=== PATIENT | male | born 1955 | race Caucasian/White ===

== ENCOUNTER 2024-08-06 16:22 | Inpatient (IN) | payer MEDICARE, SELFPAY ==
--- NOTE | ~2024-08-06 | CT_ITS ---
CLINICAL HISTORY: cp CT ANGIOGRAPHY CHEST WITH CONTRAST. 3D POSTPROCESSING. Comparison: None provided Findings: The heart is normal size. RV/LV ratio is normal. Prominent coronary artery calcifications. Atherosclerotic changes throughout the thoracic aorta with no aneurysm or dissection. No pulmonary artery filling defects. The visualized thyroid and mediastinum are unremarkable. No consolidation, pleural effusion or pneumothorax. There is septal thickening in the bilateral lower lobes, right greater than left. Bilateral lower lobe atelectasis. Biapical scarring. Small calcified granuloma in the left upper lobe. Cholelithiasis. No acute fractures. IMPRESSION: 1. No pulmonary embolus. 2. Mild septal thickening in the bilateral lower lobes secondary to inflammation, infection or fluid overload. 3. Cholelithiasis. This document has been electronically signed by: Keri Cast DO on 08/06/2024 20:58:22
--- NOTE | ~2024-08-06 | XR_ITS ---
CLINICAL HISTORY: cp 1 view chest x-ray Comparison: None provided Findings: Two films were obtained. Bilateral reticulonodular densities. No superimposed consolidation. No pleural effusion or pneumothorax. Heart size is upper limits of normal. Several clips project over the lower left neck. No acute fracture. IMPRESSION: 1. Bilateral reticulonodular densities suggesting inflammatory or infectious process. 2. No segmental pneumonia or significant pleural effusion. This document has been electronically signed by: Keri Cast DO on 08/06/2024 17:47:17
--- NOTE | 2024-08-06 16:36 | ECG_ITS ---
Test Reason : CP Blood Pressure : */* mmHG Vent. Rate : 82 BPM Atrial Rate : 82 BPM P-R Int : 208 ms QRS Dur : 146 ms QT Int : 410 ms P-R-T Axes : 46 67 3 degrees QTcB Int : 479 ms Normal sinus rhythm Right bundle branch block Inferior infarct , age undetermined Anterior infarct , age undetermined Abnormal ECG No previous ECGs available Referred By: Generic ED Physician Electronically Signed By: Christopher Dickerson
[2024-08-06 16:39] VITALS: BP 108/66; PULSE 77; RESP 12; TEMP 36.4; O2SAT 93; BMI 28.8
[2024-08-06 16:58] LABS: MANUAL DIFF FLAG NO
[2024-08-06 16:59] LABS: Basophils Absolute Auto 0.1 X10*3/uL (0.0-0.2); Basophils Percent Auto 0.6 % (0-2); Eosinophils Absolute Auto 0.3 X10*3/uL (0.0-0.4); Eosinophils Percent Auto 3.7 % (0-4); Hemoglobin 13.1 g/dl (14.0-18.0); Imm Gran Abs Auto 0.02 X10*3/uL (0.00-0.03); Imm Gran Pct Auto 0.2 % (0.0-0.4); Lymphocytes Absolute Auto 1.9 X10*3/uL (1.2-4.9); Lymphocytes Percent Auto 23.3 % (20-40); Mean Corpuscular HGB Conc 34.5 g/dl (31.0-36.0); Mean Corpuscular Hemoglobin 31.4 pg (27.0-33.0); Mean Corpuscular Volume 91.1 fL (80.0-98.0); Mean Platelet Volume 9.5 fL (9.4-12.4); Monocytes Absolute Auto 0.8 X10*3/uL (0.1-1.2); Monocytes Percent Auto 9.4 % (2-11); Neutrophils Absolute Auto 5.1 x10*3/uL (2.0-8.3); Neutrophils Percent Auto 62.8 % (45-73); Platelet Count 270 X10*3/uL (160-400); Red Blood Count 4.17 X10*6/uL (4.60-5.80); Red Cell Distribution Width 13.4 % (11.0-16.0); White Blood Count 8.2 X10*3/uL (4.8-10.8)
--- NOTE | 2024-08-06 17:14 | ED.CHESTPAIN ---
HPI - Chest Pain General Chief Complaint: Chest Pain Stated Complaint: chest pain shoulder to shoulder hx of [place] Time Seen by Provider: 08/06/24 16:47 History of Present Illness HPI narrative: Patient is 68 years old with a history of coronary artery disease had a history of having a heart attack 25 years ago status post stent history of peripheral vascular disease status post stent history of carotid disease status post stent presented today with having chest pain he has a history of diabetes, hypertension, high cholesterol history of smoking no family history of coronary artery disease patient woke up at approximately 03:45 had chest pain shortness of breath and diaphoresis. Lasting about 15-20 minute without any specific trigger. On arrival the pain is gone. He stated that he had a similar episode this morning when he woke up. Patient is from home normally goes to [facility]. Related Data Allergies Allergy/AdvReac Type Severity Reaction Status Date / Time No Known Allergies Allergy Verified 08/06/24 16:41 Review of Systems Review of Systems: Positive chest pain Yes all other systems are reviewed and are negative [facility] Past Medical History Attestation statement: The following information was validated with the patient. Social History Social History Smoked in Last 30 Days: No Use of substances other than those prescribed or required for medical reasons: No Advance Directives: No Advance Directives Information Provided: No Physical Exam Vital Signs: Vital Signs: Last Vital Signs Temp 98.0 F 08/06/24 17:55 Pulse 79 08/06/24 17:55 Resp 15 08/06/24 17:55 BP 117/79 08/06/24 17:55 Pulse Ox 95 08/06/24 17:55 O2 Del Method Room Air 08/06/24 17:55 BMI result Body Mass Index 28.8 Appearance: Alert. Oriented X3. No acute distress. Eyes: Pupils equal, round and reactive to light. ENT: Pharynx normal. Neck: Normal inspection. Neck supple. No lymph nodes noted. No crepitus CVS: Normal heart rate and rhythm. Pulses normal. Normal S1 and S2 Respiratory: No respiratory distress. Breath sounds normal. No Wheezing. No rales Abdomen: Soft and nontender. No rigidity. No distention. good BS x4 Skin: Skin warm and dry. Normal skin color. Normal skin turgor. Extremities: No lower extremity edema. Neurovascular intact to all extremities. No Lacerations. No Rash Neuro: Oriented X 3. No motor deficit. No sensory deficit. Moving all extermities. No slurred speech Medications Administered Generic Name Dose Route Start Last Admin Trade Name Freq PRN Reason Stop Dose Admin Nicotine Polacrilex 2 mg 08/06/24 17:22 08/06/24 17:36 Nicotine Polacrilex 2 Mg Gum BUCCAL 2 mg Q1H PRN Administration Nicotine Cravings Medical Decision Making Medical Decision Making [facility] Narrative: No old records here at [facility]. My review patient's EKG showed a sinus rhythm heart rate is 80 there is a right bundle branch block. MT is normal QRS is prolonged secondary to a right bundle-branch block there is no acute ST segment elevation there is no old EKG to compare. Patient has multitude of risk factors with proven coronary artery disease. Positive chest tightness with diaphoresis. Will likely require admission for further evaluation cardiac enzymes pending currently chest pain-free. Case consulted with Cardiology will start patient on heparin hospitalist team was consulted will admit patient for further evaluation 1st troponin came back in the 40s. No distress. Currently pain free. 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 Lab Attestation statement: I reviewed the patient's lab results. 08/06/24 16:53 08/06/24 16:53 Labs: Lab Results 08/06/24 Range/Units 16:53 WBC 8.2 (4.8-10.8) X10*3/uL RBC 4.17 L (4.60-5.80) X10*6/uL Hgb 13.1 L (14.0-18.0) g/dl Hct 38.0 L (42.0-52.0) % MCV 91.1 (80.0-98.0) fL MCH 31.4 (27.0-33.0) pg MCHC 34.5 (31.0-36.0) g/dl RDW 13.4 (11.0-16.0) % Plt Count 270 (160-400) X10*3/uL MPV 9.5 (9.4-12.4) fL Immature Gran % (Auto) 0.2 (0.0-0.4) % Neut % (Auto) 62.8 (45-73) % Lymph % (Auto) 23.3 (20-40) % [place] % (Auto) 9.4 (2-11) % Eos % (Auto) 3.7 (0-4) % Baso % (Auto) 0.6 (0-2) % Lymph # (Auto) 1.9 (1.2-4.9) X10*3/uL [place] # (Auto) 0.8 (0.1-1.2) X10*3/uL Eos # (Auto) 0.3 (0.0-0.4) X10*3/uL Baso # (Auto) 0.1 (0.0-0.2) X10*3/uL Abs Immat Gran (auto) 0.02 (0.00-0.03) X10*3/uL Absolute Neuts (auto) 5.1 (2.0-8.3) x10*3/uL Absolute Nucleated RBC 0.000 (0.0-0.012) X10*3/uL Nucleated RBC % (auto) 0.0 (0.0-0.2) /100WBC Sodium 140 (135-145) mmol/L Potassium 4.6 (3.3-5.1) mmol/L Chloride 107 (96-108) mmol/L Carbon Dioxide 25 (22-29) mmol/L Anion Gap 13 (12-20) BUN 25 H (9-16) mg/dL Creatinine 1.24 (0.5-1.4) mg/dL Estim Creat Clear Calc 57.2 Estimated GFR 58 Random Glucose 128 H (60-115) mg/dL Calcium 9.2 (8.4-10.2) mg/dL Total Bilirubin 0.3 (0.0-1.0) mg/dL AST 22 (5-37) U/L ALT 25 (0-40) U/L Alkaline Phosphatase 61 (39-117) U/L Troponin I High Sens 57.0 H (<3.5-35.0) ng/L Total Protein 6.9 (6.5-8.0) g/dL Albumin 4.2 (3.5-5.0) g/dL Independent Interpretation I performed an independent interpretation of an: EKG (My interpretation patient's EKG showed a sinus rhythm heart rate is 80 there is a right bundle branch block there is no acute ST segment elevation) and Plain X-Ray (Chest x-ray negative for pneumonia pneumothorax) Radiology Impression Discussion of test interpretation with radiology: I have reviewed the radiologist's reading. External Record Review No significant old records here at [facility] Chronic Conditions Patient?s care impacted by: Diabetes and Hypertension History of smoking history of coronary artery disease history of peripheral vascular disease Discharge Plan Discharge Clinical Impression: Angina at rest Patient Disposition: Admitted As Inpatient Print Language: Haitian
[2024-08-06 17:25] LABS: Alanine Aminotransferase 25 U/L (0-40); Albumin Level 4.2 g/dL (3.5-5.0); Alkaline Phosphatase 61 U/L (39-117); Anion Gap 13 (12-20); Aspartate Amino Transferase 22 U/L (5-37); Bilirubin Total 0.3 mg/dL (0.0-1.0); Blood Urea Nitrogen 25 mg/dL (9-16); Calcium 9.2 mg/dL (8.4-10.2); Carbon Dioxide 25 mmol/L (22-29); Chloride 107 mmol/L (96-108); Creatinine Clr Calc Pharmacy 57.2; Estimated Glomerular Filt Rate 58; Glucose Random 128 mg/dL (60-115); Potassium 4.6 mmol/L (3.3-5.1); Sodium 140 mmol/L (135-145); Total Protein 6.9 g/dL (6.5-8.0)
[2024-08-06] MEDS: Nicotine Polacrilex 2 MG GUM BUCCAL ×2 (17:36→19:01)
[2024-08-06 17:55] VITALS: BP 117/79; PULSE 79; RESP 15; TEMP 36.7; O2SAT 95
[2024-08-06 18:09] LABS: Hematocrit 37.6 % (42.0-52.0); Mean Corpuscular HGB Conc 34.6 g/dl (31.0-36.0); Mean Corpuscular Hemoglobin 31.5 pg (27.0-33.0); Mean Platelet Volume 9.6 fL (9.4-12.4); Platelet Count 271 X10*3/uL (160-400); Red Blood Count 4.13 X10*6/uL (4.60-5.80); Red Cell Distribution Width 13.5 % (11.0-16.0); White Blood Count 8.8 X10*3/uL (4.8-10.8)
[2024-08-06 18:16] LABS: Prothrombin Time 10.9 SEC (10.9-12.4)
[2024-08-06] MEDS: Heparin Sodium,Porcine/1/2NS 25,000 UNIT/250 ML IV.SOLN 10 UNIT IVCONT (18:35)
[2024-08-06] MEDS: Heparin Sodium,Porcine 5,000 UNIT/ML VIAL 4000 UNIT IVPUSH (18:38)
--- OUTSIDE RECORDS SUMMARY | 2024-08-06 18:44 | XMS_ITS | Encounter Summary ---
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 This section includes the names of all active insurance providers for the patient. Insurance Provider Type of Coverage Plan Name Start of Policy Coverage End of Policy Coverage Group Number Member ID Insurance Provider's Telephone Number Policy Rai's Name Patient's Relationship to Policy Rai MEDICARE (R) MEDICARE (M) PART B Jul 21, 2018 PART B [id number] KUNAL KUMARI PATIENT MEDICARE (WNR) MEDICARE (M) PART A Jul 21, 2018 PART A [id number] KUNAL KUMARI PATIENT [facility] 2017 DIREC T CARE RETIR E Jul 21, 2018 (R) DIRECT CARE [id number] KUNAL KUMARI PATIENT [facility] 2018 SELEC T Feb 20, 2017 (R) SELECT [id number] KUNAL KUMARI PATIENT FOR LIFE TFL* Jul 21, 2018 [id number] KUNAL KUMARI PATIENT [facility] TRICVanna RE STAND HALINA Apr 23, 2009 [id number] KUNAL KUMARI PATIENT Selected Encounter This section includes the information on record at [place] for the Encounter. Date/Time Encounter Type Encounter Description Reason Provider Source Sep 13, 2023 11:00 AM OFFICE O/P EST MOD 30 MIN PODIATRY ICD-10-CM L60.0 Ingrowing nail ALEJANDRA RYDER Inocencio Encounter Template Text not used by [place] Assessments - Encounter Diagnoses This section includes the primary and secondary diagnoses documented for the Encounter. Date/Time Primary/Secondary Diagnosis Diagnosis Name Provider Source Sep 13, 2023 11:32 AM PRIMARY Ingrowing nail ALEJANDRA RYDER Sep 13, 2023 11:32 AM SECONDARY Pain in left toe(s) ALEJANDRA RYDER Sep 13, 2023 11:32 AM SECONDARY Pain in right toe(s) ALEJANDRA RYDER Sep 13, 2023 11:32 AM SECONDARY Type 2 diabetes w diabetic peripheral angiopath w/o gangrene ALEJANDRA RYDER Plan of Treatment: Future Appointments (+ 6 months) and Future Tests (+/- 45 days) The Plan of Treatment section includes future care activities for the patient from all [place] treatmentfacilities. This section includes future appointments and future orders which are active, pending or scheduled. Future Appointments This section includes appointments that were scheduled to occur 6 months from the date of the Encounter, up to a maximum of 20 appointments. The data comes from all [place] treatment facilities. Appointment Date/Time Appointment Type Appointme nt Facility Name Jan 24, 2024 11:00 AM AMBULATORY - MEDICINE [facility] Feb 05, 2024 09:00 AM AMBULATORY - MEDICINE [facility] [place] [facility] Mar 12, 2024 09:00 AM AMBULATORY - MEDICINE [facility] [place] [facility] Social History: Smoking Status (Most current) and Tobacco Use (All prior to encounter date) This section includes the most current, and the historical, smoking and tobacco- related health factors from the [facility] facility where the Encounter took place. Current Smoking Status This section includes the most current smoking, or tobacco-related health factor, from the [facility] facility where the Encounter took place. Date/Time Current Smoking Status Comment Facil ity May 16, 2022 09:00 AM VA-TOBACCO FORMER USER [facility] Tobacco Use History This section includes a history of the smoking, or tobacco-related health factors, that were collected on or before the date of the Encounter. The data comes from the [place] facility where the Encounter took place. Date/Time Smoking Status/Tobacco Use Comment F lizy May 16, 2022 09:00 AM VA-TOBACCO QUIT 1 TO < 5 YRS [facility] May 31, 2021 09:30 AM VA-TOBACCO FORMER USER [facility] May 31, 2021 09:30 AM VA-TOBACCO QUIT 1 TO < 5 YRS [facility] June 23, 2020 09:00 AM VA-TOBACCO FORMER USER [facility] June 23, 2020 09:00 AM VA-TOBACCO QUIT 1 TO < 5 YRS [facility] Feb 04, 2019 08:55 AM VA-TOBACCO USE 30 YEARS OR MORE [facility] Feb 04, 2019 08:55 AM VA-TOBACCO USE ADVICE [facility] Feb 04, 2019 08:55 AM VA-TOBACCO USE ERP TECHNICAL LEAD YES Provider made aware and date set [facility] Feb 04, 2019 08:55 AM VA-TOBACCO USE MED NOTIFY PROVIDER provider made aware of 's plan [facility] Feb 04, 2019 08:55 AM VA-TOBACCO USE WI 30 MIN OF WAKEUP [facility] Feb 04, 2019 08:55 AM VA-TOBACCO USER EVERY DAY [facility] Encounter Notes: All associated encounter notes This section contains the clinical notes associated to the Encounter. Date/Time Encounter Note(s) Provider Source Sep 13, 2023 11:33 AM PODIATRY NOTE: LOCAL TITLE: PODIATRY PAVE FOOT EXAM STANDARD TITLE: PODIATRY NOTE DATE OF NOTE: SEP 13, 2023@11:33 ENTRY DATE: SEP 13, 2023@11:33:27 AUTHOR: ALEJANDRA RYDER EXP COSIGNER: URGENCY: STATUS: COMPLETED PAVE FOOT EXAM A foot risk level was completed. The following risk level was identified for this patient: +POD RISK SCORE+ *--LEVEL 3 - (HIGH RISK)* ANY of the following: Severe obstructive peripheral arterial disease Ulceration; OR history of ulceration, osteomyelitis, or amputation Charcot joint w/foot deformity Chronic kidney disease, stage 4 or higher (Decreased sensation, foot deformity, and minor foot infection may be present or absent) LEVEL 3 FOOT EDUCATION: 1. Advised patient that extra depth footwear with soft molded inserts and braces may be required. 2. Advised patient not to walk barefoot. Instructed the patient to pay close attention to the style and fit of shoes. 3. Explained the importance of daily foot checks. Explained that loss of sensation leads to callouses. Callouses break down, which result in ulcers that may lead to gangrene and amputation. 4. Stressed the importance of daily foot hygiene. Warm (not hot) bathing of the feet, complete drying and thorough inspection for changes in the condition of the skin constitute daily foot care. Demonstrated how to do a thorough foot check. 5. Emphasized the use of clean, non-restrictive socks/stockings and well fitting shoes. 6. Stressed the importance of immediate follow-up of any foot injuries or ulcers. Explained that he/she should be non-weight bearing whenever there are lesions on the foot, to prevent cellular damage. Level of Understanding: Good Patient/Family Response to Foot Care Teaching Patient walks barefoot: A few times per month Patient/caregiver able to clean feet at least once daily: Yes Patient/caregiver has difficulty examining feet: No /es/ ALEJANDRA RYDER DPM TOP KNITTER Signed: 09/13/2023 11:34 ALEJANDRA RYDER Sep 13, 2023 07:46 AM PODIATRY NOTE: LOCAL TITLE: PODIATRY NOTE STANDARD TITLE: PODIATRY NOTE DATE OF NOTE: SEP 13, 2023@07:46 ENTRY DATE: SEP 13, 2023@07:46:13 AUTHOR: ALEJANDRA RYDER EXP COSIGNER: URGENCY: STATUS: COMPLETED PODIATRY NOTE Has ADDENDA NOTE: HAS RECEIVED BOTH COVID VACCINE DOSES + 2 BOOSTERS AT [facility] LAST SEEN FOR TREATMENT: 03/29/2023 S: Pt. is a 68 yo alert WDWN CAUC MALE who is seen for continued podiatric care of painful, thickened, severely incurvated, yellow-brown discolored nails and having SOME PRURITIS AND PEELING OF SKIN ON THE RT FOOT ONLY. There has been no pain as he is seen for timely podiatric care in an attempt to avoid pain or infection. There is no history of trauma. There have been no recent changes in the patient's medical condition or medications UPON QUESTIONING TODAY. Pt. is at risk of injury with self-care due to the presence of TYPE II DM. *DENIES ANY RECENT CHANGES IN MEDS-SEE RECONCILIATION PERFORMED THIS DATE BELOW *TOBACCO USE = in process of quitting :smoking 15 per day O: Exam reveals skin color, termp & text to be WNL. There is absence of hair noted. Nails are thickened, yellow-brown discolored and display crumbling, flakiness and sub-ungual debris with rubor in the medial & lateral nail grooves and pain on palpation. Affected nails are as follows: HALLUX RT. There are no hyperkeratosis noted at this time. There are no other gross LE changes in status noted this date. PMH: Active problems - Computerized Problem List is the source for the following: *NOTE: REVIEWED ABOVE NOTING RECENT CHANGES OF CONCERN other than PVD & TYPE II DM *NOTE: PLEASE SEE PROBLEM LIST TEMPLATE FOR COMPLETE LIST NEEDED. *NOTE: A1c= 7.2 (LAST TAKEN: 10/2021) AIF=816NB - RISK=2 HEIGHT: 67 in [170.2 cm] (02/06/2018 09:13) WEIGHT: 170 lb [77.3 kg] (02/06/2018 09:13) VASCULAR: DP & PT pulses to be absent non-palpable bilateral. CFT < 3 sec x 10. There is no edema and there are no varices-superficial noted. MUSCULOSKELETAL: Exam reveals muscle strength and tone to be equal & symmetrical bilaterally & WNL for an individual of this age and present physical-medical condition. There is pain free ROM at all joints distal to and including the ankle. NEUROLOGICAL: Exam reveals S/D, vibratory, light touch & proprioception sensations to be equal & symmetrical bilaterally & diminished for an individual of this age and present physical-medical status. Protective sensation utilizing a Vanduser-David lOg monofilament is 10/10 bilateral. Exams are reviewed and noted to be unchanged since previous visit. *NOTE: *YEARLY COMPLETE PAVE EXAM PERFORMED TODAY - SEE BELOW. A: Clinical Impression: Painful onychocryptic NAILS 1-2-3-4-5 BILATERAL as noted above in the presence of PVD-DM. Class findings have been met in a high risk individual and the systemic condition has resulted in circulatory impairment & areas of desensitization. P: Treatment consists of trimming-reduction of all nails via manual and electric means with excision of offending nail borders and thinning of nail plates to the point of immanent bleeding. All care rendered without complications & pt. progressing well after podiatric care this date & will be scheduled for periodic care in an attempt to prevent future complications due to the underlying medical conditions. Tx. By a non-professional could be extremely hazardous to the patient's well-being due to the underlying medical condition. RTC 4 months per patient's request. NOTE: DO NOT CUT RT HALLUX NAIL -USE JOANNE ONLY ASK PATIENT PRIOR TO TREATING IF OK TO DEBRIDE *REVIEWED HOME FOOT CARE FEET ARE IN EXCELLENT CONDITION AND I PROVIDED HIM WITH WRITTEN RECOMMENDATIONS FOR FOOT CARE TO BE REVIEWED AT HOME (FOOT CARE TIPS). DUE TO PAIN RT HALLUX PATIENT ALLOWED ME TO DEBRIDE THE NAIL PLATE AND UTILIZE THE POWER JOANNE AND WAS GREATLY RELIVED UPON LEAVING THE FACILITY WELL LACK OF PAIN DURING TREATMENT *DISCUSSED NEW PROTOCOLS AND CALLED SHAKIRA FOR RESCHEDULING TODAY I DISCUSSED THE FINDINGS & PLAN WITH PATIENT (UNCHANGED SINCE PREVIOUS VISIT) & PATIENT AGREES AND UNDERSTANDS PLAN & NOT IN NEED OF MIRROR AT THIS TIME Medication Reconciliation: PERFORMED TODAY - SEE BELOW. Outpatient: Has the patient been taking medications as documented in the EMLR? YES: The patient has been taking medications as documented in the EMLR. Essential Medication List for Review used to complete this medication reconciliation. INCLUDED IN THIS LIST: Alphabetical list of active outpatient prescriptions dispensed from this [facility] (local) and dispensed from another [place] or [facility]D facility (remote) as well as inpatient orders (local, pending and active), local clinic medications, locally documented non-VA medications, and local prescriptions that have or been discontinued in the past 90 days. - All changes in medications, including all non-VA/Herbal/OTC medications were entered into CPRS. - If there were any medications the patient should no longer take, they were discontinued. - The patient/caregiver was instructed to update this list, discard old lists, and take this list to the next appointment, whether with a VA or non-VA provider. JLV Link Data on this list may not be complete. Please check JLV. Allergies/ADRs (Tool #5) FACILITY ALLERGY/ADR -------- [facility] NO KNOWN ALLERGIES [facility] NO KNOWN ALLERGIES [facility] No Known Allergies [facility] (Tool #1) INCLUDED IN THIS LIST: Alphabetical list of active outpatient prescriptions dispensed from this PA (local) and dispensed from another [place] or [facility] facility (remote) as well as inpatient orders (local pending and active), local clinic medications, locally documented non-VA medications, and local prescriptions that have or been discontinued in the past 90 days. Non-VA Meds Last Documented On: Nov 08, 2022 NOTE The display of VA prescriptions dispensed from another PA or [facility]D facility (remote) is limited to active outpatient prescription entries matched to National Drug File at the originating site and may not include some items such as investigational drugs, compounds, etc. NOT INCLUDED IN THIS LIST: Medications self-entered by the patient into personal health records (i.e. Pusher) are NOT included in this list. Non-VA medications documented outside this PA, remote inpatient orders (regardless of status) and remote clinic medications are NOT included in this list. The patient and provider must always discuss medications the patient is taking, regardless of where the medication was dispensed or obtained. OUTPT AMMONIUM LACTATE 12% LOTION (Status = Active) APPLY MODERATE AMOUNT TOPICALLY TWICE DAILY NEEDED FOR DRY IRRITATED SKIN Rx# [id number] Last Released: 11/11/22 Qty/Days Supply: 480/90 Rx Expiration Date: 11/09/23 Refills Remainin Indication: FOR DRY SKIN Non-VA ASPIRIN 81MG EC TAB TAKE ONE TABLET BY MOUTH EVERY DAY Patient wants to buy from Non-VA pharmacy. OUTPT ATORVASTATIN CALCIUM 80MG TAB (Status = Active) TAKE ONE TABLET BY MOUTH ONCE DAILY FOR CHOLESTEROL REPLACES SIMVASTATIN. Rx# [id number] Last Released: 03/04/23 Qty/Days Supply: 90 Rx Expiration Date: 11/09/23 Refills Remainin Non-VA CILOSTAZOL PA-F TAB TAKE BY MOUTH TWICE DAILY Non-VA medication not recommended by PA provider. Indication: FOR INTERMITTENT CLAUDICATION OUTPT CLOPIDOGREL BISULFATE 75MG TAB (Status = Active) TAKE ONE TABLET BY MOUTH ONCE DAILY Rx# [id number] Last Released: 01/24/23 Qty/Days Supply: 90/90 Rx Expiration Date: 11/17/23 Refills Remainin OUTPT FISH OIL 1000MG (500MG DHA/EPA) CAP (Status = ) TAKE ONE CAPSULE BY MOUTH TWICE DAILY Rx# [id number] Last Released: 01/07/23 Qty/Days Supply: 200/90 Rx Expiration Date: 06/16/23 Refills Remainin OUTPT LISINOPRIL 40MG TAB (Status = Active) TAKE ONE TABLET BY MOUTH ONCE DAILY TO CONTROL BLOOD PRESSURE Rx# [id number] Last Released: 01/24/23 Qty/Days Supply: 90/90 Rx Expiration Date: 11/17/23 Refills Remainin OUTPT METOPROLOL TARTRATE 25MG TAB (Status = Active) TAKE ONE TABLET BY MOUTH TWICE DAILY FOR BLOOD PRESSURE/HEART Rx# [id number] Last Released: 11/24/22 Qty/Days Supply: 180/90 Rx Expiration Date: 11/09/23 Refills Remainin Non-VA SERTRALINE HCL 100MG TAB TAKE ONE-HALF TABLET BY MOUTH ONCE DAILY Indication: FOR MAJOR DEPRESSIVE DISORDER OUTPT TRIAMCINOLONE ACETONIDE 0.1% CREAM (Status = Active) APPLY A THIN LAYER TOPICALLY TWICE DAILY NEEDED Rx# [id number] Last Released: 11/12/22 Qty/Days Supply: 80/30 Rx Expiration Date: 11/09/23 Refills Remainin SUPPLIES OUTPT ACCU-CHEK GUIDE (GLUCOSE) TEST STRIP (Status = Active) USE 1 STRIP TO TEST BLOOD SUGARS TWICE A WEEK NEEDED Rx# [id number] Last Released: 03/04/23 Qty/Days Supply: 50/180 Rx Expiration Date: 09/20/23 Refills Remainin PAVE Foot Check: A complete foot check was completed at this encounter. VISUAL INSPECTION: Includes inspection for skin breaks, deformity, erythema, trauma, pallor on elevation, dependent rubor, nail deformities, extensive callus and pitting edema. Visual exam results: Abnormal Observations: Thickened toenails PEDAL PULSES: Includes palpation of dorsalis and posterior tibial pulses and signs/symptoms of vascular compromise like pain, pallor, parasthesia or paralysis. Absent: Comment: DP & PT PULSES ARE ABSENT NON-PALPABLE BILAT SENSORY CHECK: Includes 10 gram Monofilament (Vanduser-David) test of sensation. Intact (Greater than or equal to 80% of sites checked) Abnormal (Less than 80% of sites checked): Intact Comment: VIBRATORY & MONOFILAMENT ARE WNL HIGH-RISK: HIGH RISK INFORMATION PROVIDED: 1. Advised patient that extra depth footwear with soft molded inserts and braces may be required. 2. Advised patient not to walk barefoot. 3. Explained the importance of daily foot checks. 4. Stressed the importance of daily foot hygiene, including bathing, complete drying and thorough inspection for changes. The patient verbalized understanding and was offered a detailed handout on diabetic foot care. Patient is established patient of Podiatry and/or Vascular: Last scheduled appointment: MAR 29, 2023@11:30 CWM/IDANIA/PODIATRY/ALEKSEY Comment: 03/29/2023 Suicide Screen: C-SSRS Screening [place]-Suicide Severity Rating Scale (C-SSRS Screener) 1. Over the past month, have you wished you were or wished you could go to sleep and not wake up? No 2. Over the past month, have you had any actual thoughts of killing yourself? No 3. Over the past month, have you been thinking about how you might do this? Response not required due to responses to other questions. 4. Over the past month, have you had these thoughts and had some intention of acting on them? Response not required due to responses to other questions. 5. Over the past month, have you started to work out or worked out the details of how to kill yourself? Response not required due to responses to other questions. 6. If yes, at any time in the past month did you intend to carry out this plan? Response not required due to responses to other questions. 7. In your lifetime, have you ever done anything, started to do anything, or prepared to do anything to end your life (for example, collected pills, obtained a gun, gave away valuables, went to the roof but didn't jump)? No 8. If YES, was this within the past 3 months? Response not required due to responses to other questions. /priyanka/ ALEJANDRA RYDER DPM TOP KNITTER Signed: 09/13/2023 11:33 09/13/2023 ADDENDUM STATUS: COMPLETED NEXT VISIT IS 01/24/2024 @ 11AM /priyanka/ ALEJANDRA RYDER DPM TOP KNITTER Signed: 09/13/2023 11:35 ALEJANDRA RYDER
--- NOTE | 2024-08-06 19:22 | PC.NURSE ---
this rn assumed care of pt, pt resting in stretcher, no acute distress noted. prn nicotine gum given per apr. heparin drip running at this time
--- NOTE | 2024-08-06 19:28 | ED_ITS ---
HPI - Chest Pain General Chief Complaint: Chest Pain Stated Complaint: chest pain shoulder to shoulder hx of CT Time Seen by Provider: 08/06/24 16:47 Related Data Home Medications ?Medication ?Instructions ?Recorded ?Confirmed atorvastatin 80 mg tablet 80 mg PO DAILY 08/06/24 clopidogrel 75 mg tablet 75 mg PO DAILY 08/06/24 dulaglutide 1.5 mg/0.5 mL mg subcut 08/06/24 subcutaneous pen injector (Trulicity) metformin 500 mg tablet,extended 1,000 mg PO BID 08/06/24 release 24 hr metoprolol succinate 50 mg 50 mg PO DAILY 08/06/24 tablet,extended release 24 hr sacubitril 24 mg-valsartan 26 mg 1 tab PO BID 08/06/24 tablet (Entresto) sertraline 50 mg tablet 50 mg PO DAILY 08/06/24 spironolactone 25 mg tablet 25 mg PO DAILY 08/06/24 Allergies Allergy/AdvReac Type Severity Reaction Status Date / Time No Known Allergies Allergy Verified 08/06/24 16:41 [facility] Social History Social History Smoked in Last 30 Days: No Use of substances other than those prescribed or required for medical reasons: No Advance Directives: No Advance Directives Information Provided: No Physical Exam 2 Vital Signs: Vital Signs: Last Vital Signs Temp 98.0 F 08/06/24 17:55 Pulse 79 08/06/24 17:55 Resp 15 08/06/24 17:55 BP 117/79 08/06/24 17:55 Pulse Ox 95 08/06/24 17:55 O2 Del Method Room Air 08/06/24 17:55 BMI result Body Mass Index 28.8 Medications Administered Generic Name Dose Route Start Last Admin Trade Name Freq PRN Reason Stop Dose Admin Heparin Sodium/Sodium Chloride 25,000 unit in 250 mls @ 0 mls/hr 08/06/24 18:15 08/06/24 18:35 Heparin Sodium,Porcine/1/2ns IVCONT 12 units/kg/hr .Q0M TYRELL 10 mls/hr Administration Protocol Per Protocol Nicotine Polacrilex 2 mg 08/06/24 17:22 08/06/24 19:01 Nicotine Polacrilex 2 Mg Gum BUCCAL 2 mg Q1H PRN Administration Nicotine Cravings Discontinued Medications Generic Name Dose Route Start Last Admin Trade Name Billie PRN Reason Stop Dose Admin Heparin Sodium (Porcine) 4,000 unit 08/06/24 17:56 08/06/24 18:38 Heparin Sodium,Porcine 5,000 Unit/Ml Vial IVPUSH 08/06/24 17:57 4,000 unit ONCE ONE Administration Medical Decision Making Lab Data 08/06/24 18:05 08/06/24 16:53 Labs: Lab Results 08/06/24 Range/Units 16:53 WBC 8.2 (4.8-10.8) X10*3/uL RBC 4.17 L (4.60-5.80) X10*6/uL Hgb 13.1 L (14.0-18.0) g/dl Hct 38.0 L (42.0-52.0) % MCV 91.1 (80.0-98.0) fL MCH 31.4 (27.0-33.0) pg MCHC 34.5 (31.0-36.0) g/dl RDW 13.4 (11.0-16.0) % Plt Count 270 (160-400) X10*3/uL MPV 9.5 (9.4-12.4) fL Immature Gran % (Auto) 0.2 (0.0-0.4) % Neut % (Auto) 62.8 (45-73) % Lymph % (Auto) 23.3 (20-40) % [place] % (Auto) 9.4 (2-11) % Eos % (Auto) 3.7 (0-4) % Baso % (Auto) 0.6 (0-2) % Lymph # (Auto) 1.9 (1.2-4.9) X10*3/uL [place] # (Auto) 0.8 (0.1-1.2) X10*3/uL Eos # (Auto) 0.3 (0.0-0.4) X10*3/uL Baso # (Auto) 0.1 (0.0-0.2) X10*3/uL Abs Immat Gran (auto) 0.02 (0.00-0.03) X10*3/uL Absolute Neuts (auto) 5.1 (2.0-8.3) x10*3/uL Absolute Nucleated RBC 0.000 (0.0-0.012) X10*3/uL Nucleated RBC % (auto) 0.0 (0.0-0.2) /100WBC Sodium 140 (135-145) mmol/L Potassium 4.6 (3.3-5.1) mmol/L Chloride 107 (96-108) mmol/L Carbon Dioxide 25 (22-29) mmol/L Anion Gap 13 (12-20) BUN 25 H (9-16) mg/dL Creatinine 1.24 (0.5-1.4) mg/dL Estim Creat Clear Calc 57.2 Estimated GFR 58 Random Glucose 128 H (60-115) mg/dL Calcium 9.2 (8.4-10.2) mg/dL Total Bilirubin 0.3 (0.0-1.0) mg/dL AST 22 (5-37) U/L ALT 25 (0-40) U/L Alkaline Phosphatase 61 (39-117) U/L Troponin I High Sens 57.0 H (<3.5-35.0) ng/L Total Protein 6.9 (6.5-8.0) g/dL Albumin 4.2 (3.5-5.0) g/dL Discharge Plan Discharge Clinical Impression: Angina at rest Patient Disposition: Admitted As Inpatient Interventions: Admission Worksheet (ED) Last Done: 08/06/24 19:26
--- NOTE | 2024-08-06 19:31 | PHA.MEDREC ---
Addendum entered by Sunday Vicente [facility] 08/06/24 19:37: med rec reviewed Original Note: Pharmacy Consult ? Medication Reconciliation Pharmacy has completed the medication reconciliation. Spoke to patient to confirm med list, Patient had a list of his medications with him. Patient state he takes Metoropolol 25 mg BID, however last claims has Metoprolol 50 mg daily. left on what claims has. Patient states he think he is no longer on Entresto and was changed to Spironolactone 25 mg , claims has them filled on the same date 07/10 for 90 days. left both on med list. Patient states he takes all his medications at bedtime.
[2024-08-06] MEDS: iohexoL 350 MG/ML 100 ML INFUS..BTL 65 ML IV (20:12)
[2024-08-06 20:42] VITALS: BMI 28.3
--- NOTE | 2024-08-06 20:42 | P.HPHOSP_ITS ---
History of Present Illness Date of Service: 08/06/24 Chief Complaint: chest pain 68-year-old male with a past medical history of HTN, HLD, dm, CAD, PVD, dependence, presented to the hospital with a chief complaint of chest pain. Patient reports that around 345 BMP chest pain located center of the chest, nonradiating associated nausea vomiting. Reports having diaphoresis. Called ambulance and ambulance team came and gave him aspirin and sublingual nitroglycerin followed with chest pain resolved. Did not recur. Denies any chest pain at the time of my interview. Denies any GI symptoms. Review of all other systems is negative except mentioned above ER course: Per ER team, patient was chest pain-free; EKG nonischemic; troponin 57-repeat pending; CTA chest was ordered; discussed with cardiology who suggested start the patient on heparin drip. [facility] Social History Smoked in Last 30 Days: No Use of substances other than those prescribed or required for medical reasons: No Advance Directives: No Advance Directives Information Provided: No Meds Allergies Allergy/AdvReac Type Severity Reaction Status Date / Time No Known Allergies Allergy Verified 08/06/24 16:41 Active Medications: Current Medications Acetaminophen (Acetaminophen 325 Mg Tablet) 650 mg PO Q6H PRN PRN Reason: Pain, Mild 1-3,fever,headache Calcium Carbonate (Calcium Carbonate 750 Mg Tab.Chew) 750 mg PO Q4H PRN PRN Reason: Heartburn Heparin Sodium (Porcine) (Heparin Sodium,Porcine 5,000 Unit/Ml Vial) 3,300 unit 40 unit/kg (3300 unit) IVPUSH PROTOCOL BOLUS PRN; Protocol PRN Reason: 40 unit/kg - Heparin Protocol Heparin Sodium (Porcine) (Heparin Sodium,Porcine 5,000 Unit/Ml Vial) 6,700 unit 80 unit/kg (6700 unit) IVPUSH PROTOCOL BOLUS PRN; Protocol PRN Reason: 80 unit/kg - Heparin Protocol Heparin Sodium/Sodium Chloride (Heparin Sodium,Porcine/1/2ns) 25,000 unit in 250 mls @ 0 mls/hr IVCONT .Q0M TYRELL; Protocol Last Admin: 08/06/24 18:35 Dose: 12 units/kg/hr, 10 mls/hr Magnesium Hydroxide (Milk Of Magnesia 30 Ml Oral.Susp) 30 ml PO DAILY PRN PRN Reason: Constipation Melatonin (Melatonin 3 Mg Tablet) 6 mg PO BEDTIME PRN PRN Reason: Insomnia Nicotine Polacrilex (Nicotine Polacrilex 2 Mg Gum) 2 mg BUCCAL Q1H PRN PRN Reason: Nicotine Cravings Last Admin: 08/06/24 19:01 Dose: 2 mg Nitroglycerin (Nitroglycerin 0.4 Mg Tab.Subl) 0.4 mg SUBLINGUAL Q5MX3 PRN PRN Reason: Chest Pain Sodium Chloride (0.9 % Sodium Chloride Flush 3 Ml Syringe) 3 ml IVFLUSH QSHIFT [facility] Medications ?Medication ?Instructions ?Recorded ?Confirmed ?Last Taken ?Type atorvastatin 80 mg tablet 80 mg PO BEDTIME 08/06/24 08/06/24 08/05/24 History clopidogrel 75 mg tablet 75 mg PO BEDTIME 08/06/24 08/06/24 08/05/24 History dulaglutide 1.5 mg/0.5 mL 1.5 mg subcut TH 08/06/24 08/06/24 08/01/24 History subcutaneous pen injector (Trulicity) metformin 500 mg tablet,extended 1,000 mg PO BID 08/06/24 08/06/24 08/05/24 History release 24 hr metoprolol succinate 50 mg 50 mg PO BEDTIME 08/06/24 08/06/24 08/05/24 History tablet,extended release 24 hr sacubitril 24 mg-valsartan 26 mg 1 tab PO BID 08/06/24 08/06/24 08/05/24 History tablet (Entresto) sertraline 50 mg tablet 50 mg PO BEDTIME 08/06/24 08/06/24 08/05/24 History spironolactone 25 mg tablet 25 mg PO DAILY 08/06/24 08/06/24 08/05/24 History Physical Exam 2 Vital Signs and Narrative: Vital Signs: Last Vital Signs Temp 98.0 F 08/06/24 17:55 Pulse 79 08/06/24 17:55 Resp 15 08/06/24 17:55 BP 117/79 08/06/24 17:55 Pulse Ox 95 08/06/24 17:55 O2 Del Method Room Air 08/06/24 17:55 BMI result Body Mass Index 28.8 Gen: Appears be in no acute distress HEENT: NCAT, Moist mucosa. Pulmonary: Vesicular breath sounds, fair air entry CVS: Normal S1-S2 Abdomen: BS+, Soft, Nontender Extremities: Warm well perfused Neuro: Alert and awake. Results Labs 08/06/24 18:05 08/06/24 16:53 Labs: Laboratory Results - last 24 hr 08/06/24 08/06/24 16:53 18:05 MCV 91.1 91.0 MCH 31.4 31.5 MCHC 34.5 34.6 RDW 13.4 13.5 Plt Count 270 271 MPV 9.5 9.6 Immature Gran % (Auto) 0.2 Neut % (Auto) 62.8 Lymph % (Auto) 23.3 [place] % (Auto) 9.4 Eos % (Auto) 3.7 Baso % (Auto) 0.6 Lymph # (Auto) 1.9 [place] # (Auto) 0.8 Eos # (Auto) 0.3 Baso # (Auto) 0.1 Abs Immat Gran (auto) 0.02 Absolute Neuts (auto) 5.1 Absolute Nucleated RBC 0.000 0.000 Nucleated RBC % (auto) 0.0 0.0 PT 10.9 INR 1.0 aPTT Heparin Protocol 29.0 L Anion Gap 13 Estim Creat Clear Calc 57.2 Estimated GFR 58 Random Glucose 128 H Calcium 9.2 Total Bilirubin 0.3 AST 22 ALT 25 Alkaline Phosphatase 61 Troponin I High Sens 57.0 H Total Protein 6.9 Albumin 4.2 Assessment and Plan (1) Angina at rest: Status: Acute Plan 68-year-old male with a past medical history of HTN, HLD, dm, CAD, PVD, dependence, presented to the hospital with a chief complaint of chest pain. Chest pain: Typical in nature Currently chest pain free EKG nonischemic Troponin 57--repeat pending CT chest done-resident pending Cardiology was notified- starting heparin drip Continue home Plavix, statin Telemetry Sublingual nitroglycerin p.r.n. HTN/HLD/CAD/PVD: Continue home metoprolol, statin , Plavix Diabetes: Insulin sliding scale DVT prophylaxis: Patient on heparin drip Code status: Full code Quality Stroke Does the patient have a stroke diagnosis?: No VTE Prior VTE?: No VTE Risk Level:: Medical - moderate - high VTE Device Contraindication: Treatment Not Indicated VTE Drug Contraindication: N/A - Med Ordered
[2024-08-06 20:50] VITALS: BP 136/80; PULSE 70; RESP 16; TEMP 36.7; O2SAT 97
[2024-08-06 21:28] LABS: Glucose, Whole Blood 106 mg/dL (60-115)
[2024-08-06 22:39] VITALS: BP 113/75; PULSE 68
[2024-08-06] MEDS: Metoprolol Succinate ER 50 MG TAB.ER.24H PO (22:39)
[2024-08-06] MEDS: Clopidogrel Bisulfate 75 MG TABLET PO (22:39)
[2024-08-06] MEDS: Sertraline HCL 50 MG TABLET PO (22:39)
[2024-08-06] MEDS: Atorvastatin Calcium 80 MG TABLET PO (22:40)
[2024-08-06] MEDS: 0.9 % Sodium Chloride Flush 3 ML SYRINGE IVFLUSH (22:41)
[2024-08-07] VITALS: BP 117/69; PULSE 71; RESP 18; TEMP 36.1; O2SAT 95
--- NOTE | 2024-08-07 | ECG_ITS ---
Test Reason : chest pain Blood Pressure : */* mmHG Vent. Rate : 65 BPM Atrial Rate : 65 BPM P-R Int : 192 ms QRS Dur : 142 ms QT Int : 442 ms P-R-T Axes : 70 53 241 degrees QTcB Int : 459 ms Normal sinus rhythm Right bundle branch block Inferior infarct (cited on or before 06-Aug-2024) Anterior infarct (cited on or before 06-Aug-2024) T wave abnormality, consider lateral ischemia Abnormal ECG When compared with ECG of 06-Aug-2024 16:36, Serial changes of Anterior infarct Present Referred By: Nicholas Stanley Electronically Signed By: Christopher Dickerson
[2024-08-07] MEDS: Heparin Sodium,Porcine 5,000 UNIT/ML VIAL 3300 UNIT IVPUSH (02:37)
[2024-08-07 04:00] VITALS: BP 107/69; PULSE 64; RESP 18; TEMP 36.3; O2SAT 95
[2024-08-07 07:10] LABS: MANUAL DIFF FLAG NO
[2024-08-07 07:14] LABS: Basophils Absolute Auto 0.1 X10*3/uL (0.0-0.2); Basophils Percent Auto 0.7 % (0-2); Eosinophils Absolute Auto 0.3 X10*3/uL (0.0-0.4); Eosinophils Percent Auto 3.7 % (0-4); Hematocrit 38.6 % (42.0-52.0); Hemoglobin 12.9 g/dl (14.0-18.0); Imm Gran Abs Auto 0.04 X10*3/uL (0.00-0.03); Imm Gran Pct Auto 0.5 % (0.0-0.4); Lymphocytes Absolute Auto 2.3 X10*3/uL (1.2-4.9); Lymphocytes Percent Auto 28.9 % (20-40); Mean Corpuscular HGB Conc 33.4 g/dl (31.0-36.0); Mean Corpuscular Hemoglobin 30.9 pg (27.0-33.0); Mean Corpuscular Volume 92.6 fL (80.0-98.0); Mean Platelet Volume 9.8 fL (9.4-12.4); Monocytes Absolute Auto 0.8 X10*3/uL (0.1-1.2); Monocytes Percent Auto 9.6 % (2-11); Neutrophils Absolute Auto 4.5 x10*3/uL (2.0-8.3); Neutrophils Percent Auto 56.6 % (45-73); Platelet Count 262 X10*3/uL (160-400); Red Blood Count 4.17 X10*6/uL (4.60-5.80); Red Cell Distribution Width 13.5 % (11.0-16.0)
[2024-08-07 07:16] LABS: Hematocrit 38.8 % (42.0-52.0); Mean Corpuscular HGB Conc 33.5 g/dl (31.0-36.0); Mean Corpuscular Volume 92.6 fL (80.0-98.0); Platelet Count 252 X10*3/uL (160-400); Red Blood Count 4.19 X10*6/uL (4.60-5.80); Red Cell Distribution Width 13.5 % (11.0-16.0); White Blood Count 7.8 X10*3/uL (4.8-10.8)
[2024-08-07 07:24] LABS: Prothrombin Time 11.8 SEC (10.9-12.4)
[2024-08-07 07:28] LABS: Alanine Aminotransferase 21 U/L (0-40); Alkaline Phosphatase 49 U/L (39-117); Anion Gap 12 (12-20); Aspartate Amino Transferase 21 U/L (5-37); Bilirubin Total 0.3 mg/dL (0.0-1.0); Blood Urea Nitrogen 22 mg/dL (9-16); Carbon Dioxide 23 mmol/L (22-29); Chloride 109 mmol/L (96-108); Creatinine Clr Calc Pharmacy 76.5; Estimated Glomerular Filt Rate > 60; Glucose Random 110 mg/dL (60-115); Potassium 4.3 mmol/L (3.3-5.1); Sodium 140 mmol/L (135-145); Total Protein 6.5 g/dL (6.5-8.0)
[2024-08-07 07:42] VITALS: BP 107/70; PULSE 68; RESP 18; TEMP 36.1; O2SAT 96
[2024-08-07 07:43] LABS: Glucose, Whole Blood 115 mg/dL (60-115)
[2024-08-07 07:49] LABS: Troponin-I High Sensitivity 106.9 ng/L (<3.5-35.0)
[2024-08-07 07:58] VITALS: BP 107/70; PULSE 68; RESP 18; TEMP 36.1; O2SAT 96
[2024-08-07] MEDS: 0.9 % Sodium Chloride Flush 3 ML SYRINGE IVFLUSH (08:13)
[2024-08-07 08:14] VITALS: BP 107/70
[2024-08-07] MEDS: Nicotine Polacrilex 2 MG GUM BUCCAL (08:14)
[2024-08-07] MEDS: Spironolactone 25 MG TABLET PO (08:14)
--- NOTE | 2024-08-07 08:50 | MHC.CM.PN ---
IMM 08/07. Pt self-care, lives alone at home. Pts brother to transport him home at discharge. New HCP completed with pt, now on file. PCP: Dr. Deric Weaver
[2024-08-07 09:52] LABS: PTT Heparin Drip 67.2 SEC (53-77.9)
--- NOTE | 2024-08-07 11:09 | CA_ITS ---
Transthoracic Echocardiogram Patient (Last, First, Middle): Abner Sousa, Gender: Male Date of : 1955 Age: 68 Procedure Date: 08/07/2024 Procedure Type: Transthoracic [place] [facility] [place]: 170.18 cm Weight: 81.65 kg BSA: 1.93 m2 Heart Rate: bpm BP: 109 / [address] Operations Clerk: RAMAN Referring MD: Nicholas Stanley DO Symptoms: NSTEMI Study Quality: Adequate with contrast Conclusions: - Normal left ventricular cavity size. There is mildly increased left ventricular wall thickness. The left ventricular systolic function is mild to moderately decreased. The visually estimated ejection fraction is between 35-40%. - The apical anterior and mid anterior segments are hypokinetic. - The apex, basal inferior, apical septum, and mid anteroseptal segments are akinetic. - Normal right ventricular cavity size and systolic function. Findings Procedure Information Contrast agent, definity, is being given per protocol without apparent complications. Left Ventricle Normal left ventricular cavity size. There is mildly increased left ventricular wall thickness. The left ventricular systolic function is mild to moderately decreased. The visually estimated ejection fraction is between 35-40%. There is evidence of regional wall motion abnormalities. Abnormal diastolic function is noted. Spectral Doppler is indicative of a pseudonormal filling pattern. E/E prime ratio is between 8 and 15 consistent with indeterminate filling pressures. There is severe septal asymmetric hypertrophy. Wall Motion Rest Echo Findings The apical anterior and mid anterior segments are hypokinetic. The apex, basal inferior, apical septum, and mid anteroseptal segments are akinetic. Right Ventricle Normal right ventricular cavity size and systolic function. Atria The left atrium is moderately dilated. The right atrium is likely dilated. Aortic Valve There is a normal trileaflet aortic valve. There is mild calcification of the aortic valve. Mitral Valve The mitral valve appears normal. There is mild to moderate mitral valve regurgitation. There is no mitral valve stenosis. Tricuspid Valve Normal tricuspid valve structure. There is no tricuspid valve regurgitation. Venous The inferior vena cava is normal in size and collapses greater than 50% with inspiration. Pericardium/Pleural There is no evidence of pericardial effusion. Prior Study Comparison No prior study available for comparison. Measurements 2D Linear Measurements IVSd: 1.79 0.6-0.9/0.6-1.0 cm LVIDd: 4.20 3.9-5.3/4.2-5.9 cm LVIDd Index: 2.18 2.4-3.2/2.2-3.1 cm/m2 LVIDs: 3.56 2.0-3.6 cm LVPWd: 1.16 0.7-1.1 cm LA Diam: 4.80 2.7-3.8/3.0-4.0 cm LAIDs Index: 2.49 1.5-2.3 cm/m2 LV Mass: 303.10 67-162/88-224 g LV Mass Index: 157.04 43-95/49-115 g/m2 LVOT Diam: 2.10 3.0+(-)1.3 cm 2D Systolic Function EF 4C: 39.30 >55% EF 2C: 37.20 >55% EF BiP: 38.50 >55% Mitral Valve MV Pk E: 0.81 MV PK A: 0.46 MV Decel Time: 176.00 E/A: 1.80 E'Lateral: 10.00 E'Medial: 4.79 E/E' Med: 17.00 E/E' Lat: 8.10 PHT: 52.00 MVA PHT: 4.23 Decel Lares: 4.62 Aortic Valve AoV Pk Vamsi: 1.17 AoV Mn Vamsi: 0.88 AoV VTI: 0.27 AoV Pk Grad: 5.00 Aov Mn Grad: 3.00 STEFAN Cont.VTI: 2.03 LVOT LVOT Pk Vamsi: 0.78 LVOT Mn Vamsi: 0.54 LVOT VTI: 0.16 LVOT Pk Grad: 2.00 LVOT Mn Grad: 1.00 LVOT Diam: 2.10 LVOT Area: 3.46 Diastolic Function MV Pk E: 0.81 MV Pk A: 0.46 E/A: 1.80 E'Medial: 4.79 E/E' Med: 17.00 E' Laterial: 10.00 E/E' Lat: 8.10 Right Ventricle TAPSE (mm): 20.90 TVS' Vamsi: 9.46 Tricuspid Valve RA Press: 8.00 Great Vessels Aorta Sinus of Valsalva: 3.54 2.0-3.[address] [place]: 2.72 1.7-3.4 cm Ao Asc: 3.50 2.1-3.4 cm Updated in Other Vendor System with Status of Final Christopher Dickerson MD electronically signed on 08/07/2024 5:15:06 PM with status of Final
[2024-08-07 11:35] VITALS: BP 100/58; PULSE 64; RESP 18; TEMP 36.2; O2SAT 96
[2024-08-07 11:41] LABS: Glucose, Whole Blood 103 mg/dL (60-115)
--- NOTE | 2024-08-07 11:48 | PM.DS ---
DS: Providers Provider Date of Service: 08/07/24 Date of admission: 08/06/24 17:51 Date of discharge: 08/07/24 Primary care physician: Nonstaff Physician Consults: 08/06/24 20:40 Consult to Cardiology Routine Consulting Provider: [facility] [place] [facility] Reason for consultation: angina DS: Diagnosis Discharge Diagnosis (1) Angina at rest: Status: Acute DS: Summary Hospital Course Hospital Course: [age] year old male with history of coronary artery disease status post multiple stenting, peripheral vascular disease status post left CEA (remote) presents with 2 episodes of chest pain. 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 Second episode accompanied by nausea and diaphoresis. Presents to the emergency room where EKG was without acute changes. Initial troponin 53; 2nd 106.9. No further chest pain since arrival. Patient has been heparinized since emergency room. Monitor has been sinus rhythm without acute dysrhythmias. Seen by Cardiology who recommends transfer to [facility] for cardiac catheterization. He has a diagnosis of diabetes type 2 however has not required any coverage since admission. At this point in time he is medically acceptable for transfer to [facility] via [facility] Time Attestation Discharge Coordination Time (in mins): 35 Quality: Safe Use of Opioids Does Pt have an Active Cancer Diagnosis on the Problem List?: No Quality: Stroke Does the patient have a stroke diagnosis?: No Physical Exam Vital Signs: Vital Signs: Last Vital Signs Temp 97.1 F 08/07/24 11:35 Pulse 64 08/07/24 11:35 Resp 18 08/07/24 11:35 BP 100/58 L 08/07/24 11:35 Pulse Ox 96 08/07/24 11:35 O2 Del Method Room Air 08/07/24 11:35 BMI result Body Mass Index 28.3 Const: Other: Awake alert oriented x3 in no acute distress Resp: Other: Clear to auscultation bilaterally no rales rhonchi or wheezes Cardio: Other: No S4; positive S1-S2; no S3 murmurs rubs or gallops GI: Other: Soft nontender nondistended normoactive bowel sounds Extrem: Other: No edema bilaterally DS: Data Data Completed and Pending Labs on day of discharge: Laboratory Results - last 24 hr 08/06/24 08/06/24 08/06/24 16:53 18:05 20:40 WBC 8.2 8.8 RBC 4.17 L 4.13 L Hgb 13.1 L 13.0 L Hct 38.0 L 37.6 L MCV 91.1 91.0 MCH 31.4 31.5 MCHC 34.5 34.6 RDW 13.4 13.5 Plt Count 270 271 MPV 9.5 9.6 Immature Gran % (Auto) 0.2 Neut % (Auto) 62.8 Lymph % (Auto) 23.3 [place] % (Auto) 9.4 Eos % (Auto) 3.7 Baso % (Auto) 0.6 Lymph # (Auto) 1.9 [place] # (Auto) 0.8 Eos # (Auto) 0.3 Baso # (Auto) 0.1 Abs Immat Gran (auto) 0.02 Absolute Neuts (auto) 5.1 Absolute Nucleated RBC 0.000 0.000 Nucleated RBC % (auto) 0.0 0.0 PT 10.9 INR 1.0 aPTT Heparin Protocol 29.0 L Sodium 140 Potassium 4.6 Chloride 107 Carbon Dioxide 25 Anion Gap 13 BUN 25 H Creatinine 1.24 Estim Creat Clear Calc 57.2 Estimated GFR 58 POC Glucose Random Glucose 128 H Calcium 9.2 Total Bilirubin 0.3 AST 22 ALT 25 Alkaline Phosphatase 61 Troponin I High Sens 57.0 H 121.0 H* D Total Protein 6.9 Albumin 4.2 08/06/24 08/07/24 08/07/24 21:22 00:27 06:54 WBC 7.8 RBC Hgb Hct MCV MCH MCHC RDW Plt Count MPV Immature Gran % (Auto) Neut % (Auto) Lymph % (Auto) [place] % (Auto) Eos % (Auto) Baso % (Auto) Lymph # (Auto) [place] # (Auto) Eos # (Auto) Baso # (Auto) Abs Immat Gran (auto) Absolute Neuts (auto) Absolute Nucleated RBC Nucleated RBC % (auto) PT INR aPTT Heparin Protocol 51.0 L D Sodium Potassium Chloride Carbon Dioxide Anion Gap BUN Creatinine Estim Creat Clear Calc Estimated GFR POC Glucose 106 Random Glucose Calcium Total Bilirubin AST ALT Alkaline Phosphatase Troponin I High Sens Total Protein Albumin 08/07/24 08/07/24 08/07/24 06:54 06:54 06:54 WBC 8.0 RBC 4.19 L 4.17 L Hgb 13.0 L 12.9 L Hct 38.8 L MCV MCH MCHC RDW Plt Count MPV Immature Gran % (Auto) Neut % (Auto) Lymph % (Auto) [place] % (Auto) Eos % (Auto) Baso % (Auto) Lymph # (Auto) [place] # (Auto) Eos # (Auto) Baso # (Auto) Abs Immat Gran (auto) Absolute Neuts (auto) Absolute Nucleated RBC Nucleated RBC % (auto) PT INR aPTT Heparin Protocol Sodium Potassium Chloride Carbon Dioxide Anion Gap BUN Creatinine Estim Creat Clear Calc Estimated GFR POC Glucose Random Glucose Calcium Total Bilirubin AST ALT Alkaline Phosphatase Troponin I High Sens Total Protein Albumin 08/07/24 08/07/24 08/07/24 06:54 06:54 06:54 WBC RBC Hgb Hct 38.6 L MCV 92.6 92.6 MCH 31.0 30.9 MCHC 33.5 RDW Plt Count MPV Immature Gran % (Auto) Neut % (Auto) Lymph % (Auto) [place] % (Auto) Eos % (Auto) Baso % (Auto) Lymph # (Auto) [place] # (Auto) Eos # (Auto) Baso # (Auto) Abs Immat Gran (auto) Absolute Neuts (auto) Absolute Nucleated RBC Nucleated RBC % (auto) PT INR aPTT Heparin Protocol Sodium Potassium Chloride Carbon Dioxide Anion Gap BUN Creatinine Estim Creat Clear Calc Estimated GFR POC Glucose Random Glucose Calcium Total Bilirubin AST ALT Alkaline Phosphatase Troponin I High Sens Total Protein Albumin 08/07/24 08/07/24 08/07/24 06:54 06:54 06:54 WBC RBC Hgb Hct MCV MCH MCHC 33.4 RDW 13.5 13.5 Plt Count 252 262 MPV 10.0 Immature Gran % (Auto) Neut % (Auto) Lymph % (Auto) [place] % (Auto) Eos % (Auto) Baso % (Auto) Lymph # (Auto) [place] # (Auto) Eos # (Auto) Baso # (Auto) Abs Immat Gran (auto) Absolute Neuts (auto) Absolute Nucleated RBC Nucleated RBC % (auto) PT INR aPTT Heparin Protocol Sodium Potassium Chloride Carbon Dioxide Anion Gap BUN Creatinine Estim Creat Clear Calc Estimated GFR POC Glucose Random Glucose Calcium Total Bilirubin AST ALT Alkaline Phosphatase Troponin I High Sens Total Protein Albumin 08/07/24 08/07/24 08/07/24 06:54 06:54 06:54 WBC RBC Hgb Hct MCV MCH MCHC RDW Plt Count MPV 9.8 Immature Gran % (Auto) 0.5 H Neut % (Auto) 56.6 Lymph % (Auto) 28.9 [place] % (Auto) 9.6 Eos % (Auto) 3.7 Baso % (Auto) 0.7 Lymph # (Auto) 2.3 [place] # (Auto) 0.8 Eos # (Auto) 0.3 Baso # (Auto) 0.1 Abs Immat Gran (auto) 0.04 H Absolute Neuts (auto) 4.5 Absolute Nucleated RBC 0.000 0.000 Nucleated RBC % (auto) 0.0 0.0 PT 11.8 INR 1.0 aPTT Heparin Protocol Sodium 140 Potassium 4.3 Chloride 109 H Carbon Dioxide 23 Anion Gap 12 BUN 22 H Creatinine 0.92 Estim Creat Clear Calc 76.5 Estimated GFR > 60 POC Glucose Random Glucose 110 Calcium 9.0 Total Bilirubin 0.3 AST 21 ALT 21 Alkaline Phosphatase 49 Troponin I High Sens 106.9 H* Total Protein 6.5 Albumin 4.0 08/07/24 08/07/24 08/07/24 07:38 08:44 11:32 WBC RBC Hgb Hct MCV MCH MCHC RDW Plt Count MPV Immature Gran % (Auto) Neut % (Auto) Lymph % (Auto) [place] % (Auto) Eos % (Auto) Baso % (Auto) Lymph # (Auto) [place] # (Auto) Eos # (Auto) Baso # (Auto) Abs Immat Gran (auto) Absolute Neuts (auto) Absolute Nucleated RBC Nucleated RBC % (auto) PT INR aPTT Heparin Protocol 67.2 D Sodium Potassium Chloride Carbon Dioxide Anion Gap BUN Creatinine Estim Creat Clear Calc Estimated GFR POC Glucose 115 103 Random Glucose Calcium Total Bilirubin AST ALT Alkaline Phosphatase Troponin I High Sens Total Protein Albumin Discharge Plan Discharge Anticipated Discharge Date/Time: 08/07/24 11:44 Patient Disposition: Xfer Acute Care Hospital Discharge Diagnosis: Non ST-elevation [place] Referrals: Physician,Nonstaff [Primary Care Provider, Medical] - 1 Week Discharge Medications: New nicotine (polacrilex) 2 mg Gum 2 mg buccal Q1H PRN (Reason: Nicotine Cravings) Qty: 20 0RF insulin lispro [Admelog U-100 Insulin lispro] 100 unit/mL Solution See Protocol subcut QIDACHS Qty: 10 0RF Protocol: Insulin Correction Scale Less than or equal to 110 ---- Give (units): 0 111 to 150 Give (units): 0 151 to 200 Give (units): 2 201 to 250 Give (units): 4 251 to 300 Give (units): 6 301 to 350 Give (units): 8 Greater than 350 Give (units): 10 Call MD if Blood Glucose > : 350 heparin (porcine) 5,000 unit/mL Solution 3,300 unit IVPUSH PROTOCOL BOLUS PRN (Reason: 40 Unit/Kg - Heparin Protocol) Qty: 10 0RF heparin (porcine) 5,000 unit/mL Solution 6,700 unit IVPUSH PROTOCOL BOLUS PRN (Reason: 80 Unit/Kg - Heparin Protocol) Qty: 10 0RF heparin(porcine) in 0.45% NaCl 25,000 unit/250 mL Parenteral Solution 25,000 unit continuous IV infusion .Q0M Qty: 10 0RF Continued atorvastatin 80 mg tablet 80 mg PO BEDTIME metoprolol succinate 50 mg tablet extended release 24 hr 50 mg PO BEDTIME clopidogrel 75 mg tablet 75 mg PO BEDTIME spironolactone 25 mg tablet 25 mg PO DAILY sertraline 50 mg tablet 50 mg PO BEDTIME Entresto 24-26 mg tablet 1 tab PO BID Discontinued metformin 500 mg tablet extended release 24 hr 1,000 mg PO BID Trulicity 1.5 mg/0.5 mL pen injector 1.5 mg subcut TH Discharge Orders: Discharge Order (Routine); Ordered 08/07/24 Ordered By: Nicholas Stanley Diet: Advance to usual diet Activity on Discharge: As tolerated Stand Alone Forms: Patient Portal Discharge page Print Language: Telugu Care Plan Goals: Continue all meds as per transfer summary. Continue heparin drip as ordered Health Concerns: As per receiving facility Plan of Treatment: Transfer for cardiac catheterization Assessment: See discharge summary
--- NOTE | 2024-08-07 15:41 | P.CONCA_ITS ---
History of Present Illness History of Present Illness Date of Service: 08/07/24 Requesting physician: Nicholas Stanley Chief complaint: NSTEMI Narrative: 68 year gentleman presenting with chest discomfort and NSTEMI. He has known history of coronary disease and had PCI performed 20 years ago while he was in [place]. His EKG is showing sinus rhythm 65 beats per minute, inferior and anterior Q-waves. He was previously following at [facility] but recently went to [facility] and was being set up for a diagnostic angiogram last week but apparently there was some issues with the equipment that day and procedure was not done. He said he has did not have any symptoms and procedure was being done due to his abnormal ECG. Whether he has stress testing or not he is unsure about it. He also does not recall any echocardiography so unsure what workup has been done. He said yesterday he was doing dishes and started feeling nauseous and had upper chest discomfort which lasts approximately 20 30 minutes. He called EMS who gave him aspirin and nitroglycerin and pain went away. He has not had any recurrence of chest pain. He was started on a heparin drip and has been on heparin since then. No bleeding concerns. He has been taking medications regularly. No other surgeries planned in the near future. [facility] Social History Social History Household Members: None Housing: Apartment Do you presently have visiting nurse or other home services: No Patient Tobacco Use Status: Former Tobacco user Tobacco use type: Cigarette Smoked in Last 30 Days: No Patient Interested in Nicotine Replacement: Yes (Nicotene gum) Patient Given Instructions on How to Stop Smoking: No Use of substances other than those prescribed or required for medical reasons: No Currently Displaying Signs/Symptoms of Drug Intoxication Withdrawal: No Have you been hit, kicked, punched, or otherwise hurt by someone within the past year? If so, by whom?: No Do you feel safe in your current relationship?: Yes Is there a partner from a previous relationship who is making you feel unsafe now?: No Are you made to feel afraid or neglected: No Advance Directives: No Advance Directives Information Provided: No Do you have a plan to hurt others: No Plan Recently lost weight without trying: No Eating poorly because of decreased appetite: No Nutrition Risks: No Nutritional Risk Poor oral hygiene: No service: No Meds Allergies Allergy/AdvReac Type Severity Reaction Status Date / Time No Known Allergies Allergy Verified 08/06/24 16:41 Active Medications: Current Medications Acetaminophen (Acetaminophen 325 Mg Tablet) 650 mg PO Q6H PRN PRN Reason: Pain, Mild 1-3,fever,headache Atorvastatin Calcium (Atorvastatin Calcium 80 Mg Tablet) 80 mg PO BEDTIME [facility] Last Admin: 08/06/24 22:40 Dose: 80 mg Calcium Carbonate (Calcium Carbonate 750 Mg Tab.Chew) 750 mg PO Q4H PRN PRN Reason: Heartburn Clopidogrel Bisulfate (Clopidogrel Bisulfate 75 Mg Tablet) 75 mg PO BEDTIME [facility] Last Admin: 08/06/24 22:39 Dose: 75 mg Dextrose (Dextrose 50 % 25 Gm/50 Ml Syringe) 25 gm IVPUSH Q15M PRN; Protocol PRN Reason: per Hypoglycemia Standing Ord. Glucose (Glucose Gel 15 Gm Gel..Gram.) 15 gm PO Q15M PRN; Protocol PRN Reason: per Hypoglycemia Standing Ord. Heparin Sodium (Porcine) (Heparin Sodium,Porcine 5,000 Unit/Ml Vial) 3,300 unit 40 unit/kg (3300 unit) IVPUSH PROTOCOL BOLUS PRN; Protocol PRN Reason: 40 unit/kg - Heparin Protocol Last Admin: 08/07/24 02:37 Dose: 3,300 unit Heparin Sodium (Porcine) (Heparin Sodium,Porcine 5,000 Unit/Ml Vial) 6,700 unit 80 unit/kg (6700 unit) IVPUSH PROTOCOL BOLUS PRN; Protocol PRN Reason: 80 unit/kg - Heparin Protocol Heparin Sodium/Sodium Chloride (Heparin Sodium,Porcine/1/2ns) 25,000 unit in 250 mls @ 0 mls/hr IVCONT .Q0M [facility]; Protocol Last Titration: 08/07/24 10:16 Dose: 14 units/kg/hr, 11.66 mls/hr Insulin Human Lispro (Insulin Lispro 100 Unit/Ml 3 Ml Vial) 0 unit SUBCUT QIDACHS [facility]; Protocol Last Admin: 08/07/24 11:47 Dose: Not Given Magnesium Hydroxide (Milk Of Magnesia 30 Ml Oral.Susp) 30 ml PO DAILY PRN PRN Reason: Constipation Melatonin (Melatonin 3 Mg Tablet) 6 mg PO BEDTIME PRN PRN Reason: Insomnia Metoprolol Succinate (Metoprolol Succinate Er 50 Mg Tab.Er.24h) 50 mg PO BEDTIME [facility]; Protocol Last Admin: 08/06/24 22:39 Dose: 50 mg Nicotine Polacrilex (Nicotine Polacrilex 2 Mg Gum) 2 mg BUCCAL Q1H PRN PRN Reason: Nicotine Cravings Last Admin: 08/07/24 08:14 Dose: 2 mg Nitroglycerin (Nitroglycerin 0.4 Mg Tab.Subl) 0.4 mg SUBLINGUAL Q5MX3 PRN PRN Reason: Chest Pain Sertraline HCl (Sertraline Hcl 50 Mg Tablet) 50 mg PO BEDTIME [facility] Last Admin: 08/06/24 22:39 Dose: 50 mg Sodium Chloride (0.9 % Sodium Chloride Flush 3 Ml Syringe) 3 ml IVFLUSH QSHIFT [facility] Last Admin: 08/07/24 08:13 Dose: 3 ml Spironolactone (Spironolactone 25 Mg Tablet) 25 mg PO DAILY [facility]; Protocol Last Admin: 08/07/24 08:14 Dose: 25 mg Home Medications ?Medication ?Instructions ?Recorded ?Confirmed ?Last Taken ?Type atorvastatin 80 mg tablet 80 mg PO BEDTIME 08/06/2408/05/24 History clopidogrel 75 mg tablet 75 mg PO BEDTIME 08/06/2408/05/24 History metoprolol succinate 50 mg 50 mg PO BEDTIME 08/06/24 0 08/06/24 08/05/24 History tablet,extended release 24 hr sacubitril 24 mg-valsartan 26 mg 1 tab PO BID 08/06/24 08/06/24 08/05/24 History tablet (Entresto) sertraline 50 mg tablet 50 mg PO BEDTIME 08/06/2408/05/24 History spironolactone 25 mg tablet 25 mg PO DAILY 08/06/2408/05/24 History Physical Exam 2 Vital Signs: Vital Signs: Last Vital Signs Temp 97.1 F 08/07/24 11:35 Pulse 64 08/07/24 11:35 Resp 18 08/07/24 11:35 BP 100/58 L 08/07/24 11:35 Pulse Ox 96 08/07/24 11:35 O2 Del Method Room Air 08/07/24 11:35 BMI result Body Mass Index 28.3 GENERAL APPEARANCE: in no acute distress, pleasant. NECK: no carotid bruit, no jugular venous distention. SKIN: no suspicious lesions, warm and dry. HEART: no murmurs, regular rate and rhythm. LUNGS: clear to auscultation bilaterally. ABDOMEN: soft, nontender. EXTREMITIES: no edema. Dupuytren contracture right hand. PERIPHERAL PULSES: equal. NEUROLOGIC: No gross deficits, AAO X 3 Objective Labs and Meds 08/07/24 06:54 08/07/24 06:54 Lab results: Laboratory Results - last 24 hr 08/06/24 08/06/24 08/06/24 16:53 18:05 20:40 WBC 8.2 8.8 RBC 4.17 L 4.13 L Hgb 13.1 L 13.0 L Hct 38.0 L 37.6 L MCV 91.1 91.0 MCH 31.4 31.5 MCHC 34.5 34.6 RDW 13.4 13.5 Plt Count 270 271 MPV 9.5 9.6 Immature Gran % (Auto) 0.2 Neut % (Auto) 62.8 Lymph % (Auto) 23.3 [place] % (Auto) 9.4 Eos % (Auto) 3.7 Baso % (Auto) 0.6 Lymph # (Auto) 1.9 [place] # (Auto) 0.8 Eos # (Auto) 0.3 Baso # (Auto) 0.1 Abs Immat Gran (auto) 0.02 Absolute Neuts (auto) 5.1 Absolute Nucleated RBC 0.000 0.000 Nucleated RBC % (auto) 0.0 0.0 PT 10.9 INR 1.0 aPTT Heparin Protocol 29.0 L Sodium 140 Potassium 4.6 Chloride 107 Carbon Dioxide 25 Anion Gap 13 BUN 25 H Creatinine 1.24 Estim Creat Clear Calc 57.2 Estimated GFR 58 POC Glucose Random Glucose 128 H Calcium 9.2 Total Bilirubin 0.3 AST 22 ALT 25 Alkaline Phosphatase 61 Troponin I High Sens 57.0 H 121.0 H* D Total Protein 6.9 Albumin 4.2 08/06/24 08/07/24 08/07/24 21:22 00:27 06:54 WBC 7.8 RBC Hgb Hct MCV MCH MCHC RDW Plt Count MPV Immature Gran % (Auto) Neut % (Auto) Lymph % (Auto) [place] % (Auto) Eos % (Auto) Baso % (Auto) Lymph # (Auto) [place] # (Auto) Eos # (Auto) Baso # (Auto) Abs Immat Gran (auto) Absolute Neuts (auto) Absolute Nucleated RBC Nucleated RBC % (auto) PT INR aPTT Heparin Protocol 51.0 L D Sodium Potassium Chloride Carbon Dioxide Anion Gap BUN Creatinine Estim Creat Clear Calc Estimated GFR POC Glucose 106 Random Glucose Calcium Total Bilirubin AST ALT Alkaline Phosphatase Troponin I High Sens Total Protein Albumin 08/07/24 08/07/24 08/07/24 06:54 06:54 06:54 WBC 8.0 RBC 4.19 L 4.17 L Hgb 13.0 L 12.9 L Hct 38.8 L MCV MCH MCHC RDW Plt Count MPV Immature Gran % (Auto) Neut % (Auto) Lymph % (Auto) [place] % (Auto) Eos % (Auto) Baso % (Auto) Lymph # (Auto) [place] # (Auto) Eos # (Auto) Baso # (Auto) Abs Immat Gran (auto) Absolute Neuts (auto) Absolute Nucleated RBC Nucleated RBC % (auto) PT INR aPTT Heparin Protocol Sodium Potassium Chloride Carbon Dioxide Anion Gap BUN Creatinine Estim Creat Clear Calc Estimated GFR POC Glucose Random Glucose Calcium Total Bilirubin AST ALT Alkaline Phosphatase Troponin I High Sens Total Protein Albumin 08/07/24 08/07/24 08/07/24 06:54 06:54 06:54 WBC RBC Hgb Hct 38.6 L MCV 92.6 92.6 MCH 31.0 30.9 MCHC 33.5 RDW Plt Count MPV Immature Gran % (Auto) Neut % (Auto) Lymph % (Auto) [place] % (Auto) Eos % (Auto) Baso % (Auto) Lymph # (Auto) [place] # (Auto) Eos # (Auto) Baso # (Auto) Abs Immat Gran (auto) Absolute Neuts (auto) Absolute Nucleated RBC Nucleated RBC % (auto) PT INR aPTT Heparin Protocol Sodium Potassium Chloride Carbon Dioxide Anion Gap BUN Creatinine Estim Creat Clear Calc Estimated GFR POC Glucose Random Glucose Calcium Total Bilirubin AST ALT Alkaline Phosphatase Troponin I High Sens Total Protein Albumin 08/07/24 08/07/24 08/07/24 06:54 06:54 06:54 WBC RBC Hgb Hct MCV MCH MCHC 33.4 RDW 13.5 13.5 Plt Count 252 262 MPV 10.0 Immature Gran % (Auto) Neut % (Auto) Lymph % (Auto) [place] % (Auto) Eos % (Auto) Baso % (Auto) Lymph # (Auto) [place] # (Auto) Eos # (Auto) Baso # (Auto) Abs Immat Gran (auto) Absolute Neuts (auto) Absolute Nucleated RBC Nucleated RBC % (auto) PT INR aPTT Heparin Protocol Sodium Potassium Chloride Carbon Dioxide Anion Gap BUN Creatinine Estim Creat Clear Calc Estimated GFR POC Glucose Random Glucose Calcium Total Bilirubin AST ALT Alkaline Phosphatase Troponin I High Sens Total Protein Albumin 08/07/24 08/07/24 08/07/24 06:54 06:54 06:54 WBC RBC Hgb Hct MCV MCH MCHC RDW Plt Count MPV 9.8 Immature Gran % (Auto) 0.5 H Neut % (Auto) 56.6 Lymph % (Auto) 28.9 [place] % (Auto) 9.6 Eos % (Auto) 3.7 Baso % (Auto) 0.7 Lymph # (Auto) 2.3 [place] # (Auto) 0.8 Eos # (Auto) 0.3 Baso # (Auto) 0.1 Abs Immat Gran (auto) 0.04 H Absolute Neuts (auto) 4.5 Absolute Nucleated RBC 0.000 0.000 Nucleated RBC % (auto) 0.0 0.0 PT 11.8 INR 1.0 aPTT Heparin Protocol Sodium 140 Potassium 4.3 Chloride 109 H Carbon Dioxide 23 Anion Gap 12 BUN 22 H Creatinine 0.92 Estim Creat Clear Calc 76.5 Estimated GFR > 60 POC Glucose Random Glucose 110 Calcium 9.0 Total Bilirubin 0.3 AST 21 ALT 21 Alkaline Phosphatase 49 Troponin I High Sens 106.9 H* Total Protein 6.5 Albumin 4.0 08/07/24 08/07/24 08/07/24 07:38 08:44 11:32 WBC RBC Hgb Hct MCV MCH MCHC RDW Plt Count MPV Immature Gran % (Auto) Neut % (Auto) Lymph % (Auto) [place] % (Auto) Eos % (Auto) Baso % (Auto) Lymph # (Auto) [place] # (Auto) Eos # (Auto) Baso # (Auto) Abs Immat Gran (auto) Absolute Neuts (auto) Absolute Nucleated RBC Nucleated RBC % (auto) PT INR aPTT Heparin Protocol 67.2 D Sodium Potassium Chloride Carbon Dioxide Anion Gap BUN Creatinine Estim Creat Clear Calc Estimated GFR POC Glucose 115 103 Random Glucose Calcium Total Bilirubin AST ALT Alkaline Phosphatase Troponin I High Sens Total Protein Albumin Assessment and Plan (1) NSTEMI (non-ST elevated myocardial infarction): Status: Acute Plan Pleasant 68 year gentleman with known history of coronary artery disease with previous PCI 20 years ago while in [place] presenting for chest discomfort at rest and mild troponin elevation. He has ruled in for NSTEMI. He has known right bundle-branch block with anterior and inferior Q-waves. We will do echocardiography today. Continue heparin drip. He is on heart failure medicines including Entresto and metoprolol succinate. These should be continued as before. He is on Plavix 75 mg daily at home. This should be continued and baby aspirin should be added to the regimen. If there is surgical disease found then we can stop the Plavix. Thank you for allowing me to participate in the care of your patient. Please feel free to contact me if you have any questions. Procedures Date of Service Date of Service: 08/07/24
== END 2024-08-07 16:02 | disposition short-term general hospital (02) | DRG 282 ==
LOC: HO.ED 18:00 → HO.EDOVER 18:01 → HO.IMC 19:18
PROVIDERS: Hospitalist; Admitting Provider Student in an Organized Health Care Education/Training Program; Emergency Provider Emergency Medicine Emergency Medical Services; PCP Internal Medicine; Visit Provider Hospitalist
DX: I21.4 Non-ST elevation (NSTEMI) myocardial infarction (principal); E11.51 Type 2 diabetes mellitus with diabetic peripheral angiopathy without gangrene; I10 Essential (primary) hypertension; E78.5 Hyperlipidemia, unspecified; I25.10 Atherosclerotic heart disease of native coronary artery without angina pectoris; Z95.5 Presence of coronary angioplasty implant and graft; Z87.891 Personal history of nicotine dependence; Z79.02 Long term (current) use of antithrombotics/antiplatelets; Z79.899 Other long term (current) drug therapy
CPT/HCPCS: 36415; 71045; 71275; 80053; 82947; 84484; 85025; 85027; 85610; 85730; 93005; 93306; 99285; J1644; Q9967

== ENCOUNTER → 2024-08-06 17:10 | Outpatient (BNV) | payer MEDICARE, SELFPAY | PROVIDERS: Admitting Provider Student in an Organized Health Care Education/Training Program; Emergency Provider Emergency Medicine Emergency Medical Services; Visit Provider Radiology Diagnostic Radiology | DX: J98.11 Atelectasis (principal); R91.8 Other nonspecific abnormal finding of lung field | CPT/HCPCS: 71045; 71275 ==

== ENCOUNTER 2024-08-06 17:51 | Outpatient (BNV) | payer MEDICARE, SELFPAY | END 2024-08-07 11:09 | PROVIDERS: Admitting Provider Student in an Organized Health Care Education/Training Program; Emergency Provider Emergency Medicine Emergency Medical Services; PCP Internal Medicine; Visit Provider Internal Medicine Cardiovascular Disease | DX: I21.4 Non-ST elevation (NSTEMI) myocardial infarction (principal); I45.10 Unspecified right bundle-branch block; I25.2 Old myocardial infarction | CPT/HCPCS: 93010; 93306 ==

== ENCOUNTER → 2024-08-06 17:51 | Outpatient (BNV) | payer MEDICARE, SELFPAY | PROVIDERS: Admitting Provider Student in an Organized Health Care Education/Training Program; Emergency Provider Emergency Medicine Emergency Medical Services; PCP Internal Medicine; Visit Provider Internal Medicine Cardiovascular Disease | DX: I21.4 Non-ST elevation (NSTEMI) myocardial infarction (principal) | CPT/HCPCS: 93010; 99223 ==

== ENCOUNTER → 2024-08-06 17:51 | Outpatient (BNV) | payer MEDICARE, SELFPAY | PROVIDERS: Admitting Provider Student in an Organized Health Care Education/Training Program; Emergency Provider Emergency Medicine Emergency Medical Services; Visit Provider Hospitalist | DX: I20.89 Other forms of angina pectoris (principal) | CPT/HCPCS: 99239 ==

== ENCOUNTER → 2024-08-08 23:59 | Outpatient (BNV) | payer MEDICARE, SELFPAY | PROVIDERS: PCP Internal Medicine; Visit Provider Internal Medicine Cardiovascular Disease | DX: I21.4 Non-ST elevation (NSTEMI) myocardial infarction (principal) | CPT/HCPCS: 93458; 99152 ==